=== PATIENT | female | born 1935 | race Caucasian/White ===

== ENCOUNTER 2017-12-06 06:23 | Emergency (ER) | payer MEDICARE, OTHER ==
[~2017-12-06] VITALS: Ht 157.5 cm; Wt 59.0 kg
[~2017-12-06 06:23] MED LIST: TENORMIN 25MG T25 MG; Z.0.ACCUPRIL20 MG; Z.0.AMBIEN10 MG; Z.0.AMLODIPINE BESYL; Z.0.CYMBALTA30 MG; Z.0.SOMA350 MG; Z.0.VICODIN 5-5001 E; Z.0.XANAX0.5 MG
[2017-12-06] MEDS ORDERED: BUPIVACAINE HCL 0.5% 10ML MPF VIAL INJ ONE ×2 (08:15)
== END 2017-12-06 09:20 | disposition home or self-care (01) ==
LOC: ER 06:23
DX: S60.451A Superficial foreign body of left index finger, initial encounter (principal); L03.012 Cellulitis of left finger; W18.39XD Other fall on same level, subsequent encounter; H10.022 Other mucopurulent conjunctivitis, left eye; I10 Essential (primary) hypertension; I25.10 Atherosclerotic heart disease of native coronary artery without angina pectoris; Z85.72 Personal history of non-Hodgkin lymphomas

== ENCOUNTER 2021-10-27 11:24 | Emergency (ER) | payer MEDICARE ==
[~2021-10-27] VITALS: Ht 157.5 cm; Wt 55.8 kg
[~2021-10-27 11:24] MED LIST changes: +ATENOLOL25 MG PO; +CYMBALTA30 MG PO; +NORCO 10-325 T1 EACH PO; +QUINAPRIL HCL20 MG PO; +SOMA250 MG; +XANAX0.25 MG PO; +ZOLPIDEM TARTRA10 MG PO
[2021-10-27] MEDS ORDERED: SODIUM CHLORIDE 0.9% 1000ML 1,000 ML IV STA (11:38)
[2021-10-27] MEDS ORDERED: HYDROCODONE/APAP 10MG-325MG TAB PO ONE (12:00)
[2021-10-27 12:12] LABS: BASOPHILS % 0.3 % (0.0-1.0); EOSINOPHILS # (AUTO) 0.1 (0.0-0.4); EOSINOPHILS % 1.1 % (0.0-6.0); HEMATOCRIT 40.8 % (34.2-44.1); HEMOGLOBIN 12.8 g/dL (12.0-16.0); LYMPHOCYTES # (AUTO) 2.7 (1.0-3.2); LYMPHOCYTES % 23.7 % (18.0-39.1); MEAN CORPUSCULAR HEMOGLOBIN 27.3 pg (28-32); MEAN CORPUSCULAR HGB CONC 31.4 g/dL (31-35); MONOCYTES # (AUTO) 1.2 (0.2-0.8); MONOCYTES % 10.2 % (4.4-11.3); NEUTROPHILS # (AUTO) 7.4 (2.1-6.9); NEUTROPHILS % 64.4 % (38.7-80.0); PLATELET COUNT 274 x10e3/uL (140-360); RED BLOOD COUNT 4.69 x10e6/uL (3.6-5.1)
[2021-10-27 12:23] LABS: INR 0.94; PARTIAL THROMBOPLASTIN TIME 27.8 seconds (23.8-35.5); PROTHROMBIN TIME 13.3 seconds (11.9-14.5)
[2021-10-27 12:26] LABS: CLARITY,URINE CLEAR (CLEAR); COLOR,URINE YELLOW (YELLOW); KETONES,URINE NEGATIVE (NEGATIVE); LEUKOCYTE ESTERASE ,URINE NEGATIVE (NEGATIVE); NITRITE,URINE NEGATIVE (NEGATIVE); PROTEIN,URINE DIPSTICK NEGATIVE (NEGATIVE); URINE UROBILINOGEN 0.2 mg/dL (0.2 - 1)
[2021-10-27 12:32] LABS: ALANINE AMINOTRANSFERASE 12 IU/L (0-55); ALBUMIN 4.2 g/dL (3.5-5.0); ALBUMIN/GLOBULIN RATIO 1.1 (0.8-2.0); ALKALINE PHOSPHATASE 76 IU/L (40-150); ANION GAP 16.4 mmol/L (8-16); BLOOD UREA NITROGEN 9 mg/dL (7-26); BUN/CREATININE RATIO 9 (6-25); CALCIUM 9.2 mg/dL (8.4-10.2); CARBON DIOXIDE 19 mmol/L (22-29); CHLORIDE 105 mmol/L (98-107); CREATINE KINASE 62 IU/L (29-168); CREATININE, SERUM 1.02 mg/dL (0.57-1.11); EST GLOMERULAR FILTRATION RATE 52 ML/MIN (60-); GLUCOSE 129 mg/dL (74-118); POTASSIUM 3.4 mmol/L (3.5-5.1); SODIUM 137 mmol/L (136-145)
[2021-10-27 12:33] LABS: BACTERIA,URINE RARE /HPF; RBC,URINE 0-5 /HPF (0-5); WBC,URINE (MAN) 0-5 /HPF (0-5)
[2021-10-27 12:34] LABS: EPITHELIAL CELLS,URINE RARE /LPF
[2021-10-27] MEDS ORDERED: CIPRO500 MG PO (18:43)
== END 2021-10-27 19:13 | disposition home or self-care (01) ==
LOC: MERGE 11:28 → ER 11:28
DX: R45.851 Suicidal ideations (principal); R46.89 Other symptoms and signs involving appearance and behavior; N39.0 Urinary tract infection, site not specified; R42 Dizziness and giddiness; I10 Essential (primary) hypertension; Z85.72 Personal history of non-Hodgkin lymphomas; R94.31 Abnormal electrocardiogram [ECG] [EKG]
CPT/HCPCS: 36415; 70450; 71045; 80053; 81001; 82550; 82553; 83880; 84484; 85025; 85610; 85730; 93005; 99285; J7030

== ENCOUNTER → 2022-04-01 | Outpatient (CLI) | payer MEDICARE ==
[~2022-04-01] MED LIST changes: +CIPRO500 MG PO
== END ==
LOC: CARD 13:49
PROVIDERS: ATTEND Family Medicine
DX: I73.9 Peripheral vascular disease, unspecified (principal)
CPT/HCPCS: 93925

== ENCOUNTER 2024-07-01 09:18 | Inpatient (IN) | payer MEDICARE ==
[~2024-07-01] VITALS: Ht 157.5 cm; Wt 52.2 kg
[2024-07-01 09:58] LABS: BASOPHILS % 0.1 % (0.0-1.0); HEMATOCRIT 36.3 % (34.2-44.1); HEMOGLOBIN 12.7 g/dL (12.0-16.0); LYMPHOCYTES # (AUTO) 1.3 (1.0-3.2); LYMPHOCYTES % 6.2 % (18.0-39.1); MEAN CORPUSCULAR HEMOGLOBIN 32.7 pg (28-32); MEAN CORPUSCULAR VOLUME 93.6 fL (81-99); MONOCYTES # (AUTO) 1.5 (0.2-0.8); MONOCYTES % 7.2 % (4.4-11.3); NEUTROPHILS # (AUTO) 17.6 (2.1-6.9); NEUTROPHILS % 85.9 % (38.7-80.0); PLATELET COUNT 293 x10e3/uL (140-360); RED BLOOD COUNT 3.88 x10e6/uL (3.6-5.1); RED CELL DISTRIBUTION WIDTH 13.3 % (11.7-14.4); WHITE BLOOD COUNT 20.47 x10e3/uL (4.8-10.8)
[2024-07-01 10:03] LABS: INR 0.94; PROTHROMBIN TIME 13.1 seconds (11.9-14.5)
[2024-07-01 10:04] LABS: PARTIAL THROMBOPLASTIN TIME 24.8 seconds (23.8-35.5)
[2024-07-01 10:14] LABS: ALANINE AMINOTRANSFERASE 7 IU/L (0-55); ALBUMIN/GLOBULIN RATIO 1.2 (0.8-2.0); ALKALINE PHOSPHATASE 69 IU/L (40-150); BILIRUBIN,TOTAL 1.3 mg/dL (0.2-1.2); CREATINE KINASE 118 IU/L (29-168); CREATININE, SERUM 0.81 mg/dL (0.57-1.11); EST GLOMERULAR FILTRATION RATE 71 ML/MIN (>=60); GLUCOSE 138 mg/dL (74-118); LIPASE 29 U/L (8-78); MAGNESIUM 1.6 MG/DL (1.3-2.1); TOTAL PROTEIN 7.3 g/dL (6.5-8.1)
[2024-07-01] MEDS: ONDANSETRON HCL INJ 2MG/ML 2ML 2 MG/ML VIAL IV STA (10:20)
[2024-07-01] MEDS: DICYCLOMINE HCL 20 MG/2 ML VIAL IM ONE (10:20)
[2024-07-01] MEDS: ALPRAZOLAM 0.5 MG TAB PO ONE (10:20)
[2024-07-01] MEDS: SODIUM CHLORIDE 0.9% 1000ML 1,000 ML IV STA (10:21)
[2024-07-01 10:38] LABS: TROPONIN I < 0.001 ng/mL (0-0.300)
[2024-07-01] MEDS ORDERED: IOPAMIDOL 370 MG/ML 100 ML INFUS..BTL INJ ONE (10:42)
[2024-07-01 10:46] LABS: BLOOD UREA NITROGEN 9 mg/dL (7-26); BUN/CREATININE RATIO 11 (6-25)
[2024-07-01 10:48] VITALS: PULSE 71; RESP 17; TEMP 98.3
[2024-07-01 11:12] LABS: LYMPHOCYTES % (MANUAL) 8 % (19-48); MONOCYTES % (MANUAL) 4 % (3.4-9.0); NEUTROPHILS % (MANUAL) 88 % (40-74); PLATELET ESTIMATE ADEQUATE; PLATELET MORPHOLOGY COMMENT NORMAL; RBC MORPHOLOGY COMMENT NORMAL
[2024-07-01 11:37] LABS: CLARITY,URINE CLEAR (CLEAR); COLOR,URINE YELLOW (YELLOW); GLUCOSE, URINE NEGATIVE (NEGATIVE); KETONES,URINE >=160 (NEGATIVE); LEUKOCYTE ESTERASE ,URINE NEGATIVE (NEGATIVE); NITRITE,URINE NEGATIVE (NEGATIVE); PH,URINE 5.5 (5 - 7); PROTEIN,URINE DIPSTICK 1+ (NEGATIVE); URINE UROBILINOGEN 0.2 mg/dL (0.2 - 1)
[2024-07-01 11:38] LABS: BILIRUBIN,URINE NEGATIVE (NEGATIVE)
[2024-07-01 11:42] LABS: ANION GAP 18.3 mmol/L (8-16); CARBON DIOXIDE 19 mmol/L (18-33); CHLORIDE 89 mmol/L (101-111); POTASSIUM 3.3 mmol/L (3.0-5.1); SODIUM 123 mmol/L (128-145)
[2024-07-01 11:46] LABS: BACTERIA,URINE FEW /HPF; EPITHELIAL CELLS,URINE FEW /LPF
[2024-07-01] MEDS ORDERED: ACETAMINOPHEN 325 MG TAB PO PRN (13:45)
[2024-07-01] MEDS ORDERED: ONDANSETRON HCL INJ 2MG/ML 2ML 2 MG/ML VIAL IV PRN (13:45)
[2024-07-01 14:50] VITALS: BP 144/70; PULSE 64; RESP 17; TEMP 98.4; O2SAT 97
[2024-07-01] MEDS ORDERED: AMLODIPINE BESYL5 MG PO (15:42)
[2024-07-01] MEDS ORDERED: MEMANTINE HCL5 MG PO (15:42)
[2024-07-01] MEDS ORDERED: ALPRAZOLAM0.5 MG PO (15:42)
[2024-07-01] MEDS ORDERED: HYDROCODON-ACE1 EAC9 PO (15:42)
[2024-07-01] MEDS ORDERED: RAMIPRIL2.5 MG PO (15:42)
[2024-07-01] MEDS ORDERED: PRAVASTATIN SOD20 MG PO (15:42)
[2024-07-01 15:44] VITALS: BP 119/60; O2SAT 98
[2024-07-01 15:55] VITALS: BP 119/60; O2SAT 98
[2024-07-01] MEDS: HYDROCODONE/APAP 10MG-325MG TAB PO PRN (16:10)
[2024-07-01] MEDS: SODIUM CHLORIDE 0.9% 1000ML 1,000 ML IV SCH (16:21)
[2024-07-01 16:28] LABS: TROPONIN I 0.01 ng/mL (0-0.300)
[2024-07-01 16:42] LABS: BLOOD UREA NITROGEN 8 mg/dL (7-26); GLUCOSE 114 mg/dL (74-118); OSMOLALITY,SERUM 256 mOsm/kg (278-305); SODIUM 128 mmol/L (136-145)
[2024-07-01] MEDS: ALPRAZOLAM 0.5 MG TAB PO SCH (19:01)
[2024-07-01 20:04] VITALS: BP 117/58; PULSE 66; RESP 18; TEMP 98.4; O2SAT 97
[2024-07-01 23:37] VITALS: BP 106/55; PULSE 55; RESP 18; TEMP 98.2; O2SAT 98
[2024-07-02] VITALS (7 sets, daily range): BP systolic 113–133; BP diastolic 53–66; PULSE 60–78; RESP 14–20; TEMP 98–98.3; O2SAT 94–100
[2024-07-02 06:30] LABS: BASOPHILS % 0.1 % (0.0-1.0); EOSINOPHILS # (AUTO) 0.1 (0.0-0.4); EOSINOPHILS % 0.8 % (0.0-6.0); HEMATOCRIT 30.6 % (34.2-44.1); HEMOGLOBIN 10.3 g/dL (12.0-16.0); LYMPHOCYTES # (AUTO) 2.8 (1.0-3.2); LYMPHOCYTES % 23.6 % (18.0-39.1); MEAN CORPUSCULAR HEMOGLOBIN 32.9 pg (28-32); MEAN CORPUSCULAR HGB CONC 33.7 g/dL (31-35); MEAN CORPUSCULAR VOLUME 97.8 fL (81-99); MONOCYTES # (AUTO) 1.3 (0.2-0.8); MONOCYTES % 11.1 % (4.4-11.3); NEUTROPHILS # (AUTO) 7.5 (2.1-6.9); NEUTROPHILS % 63.6 % (38.7-80.0); PLATELET COUNT 218 x10e3/uL (140-360); RED BLOOD COUNT 3.13 x10e6/uL (3.6-5.1); RED CELL DISTRIBUTION WIDTH 14.1 % (11.7-14.4); WHITE BLOOD COUNT 11.72 x10e3/uL (4.8-10.8)
[2024-07-02 06:31] LABS: TROPONIN I 0.013 ng/mL (0-0.300)
[2024-07-02 06:38] LABS: ALBUMIN 3.4 g/dL (3.5-5.0); ALBUMIN/GLOBULIN RATIO 1.1 (0.8-2.0); BILIRUBIN,TOTAL 0.4 mg/dL (0.2-1.2); CALCIUM 9.8 mg/dL (8.4-10.2); CREATININE, SERUM 0.81 mg/dL (0.57-1.11); TOTAL PROTEIN 6.5 g/dL (6.5-8.1)
[2024-07-02 07:37] LABS: POTASSIUM 3.9 mmol/L (3.5-5.1)
[2024-07-02 08:08] LABS: ANION GAP 5.9 mmol/L (8-16)
[2024-07-02] MEDS ORDERED: MEMANTINE HCL 5 MG PO SCH (09:00)
[2024-07-02] MEDS ORDERED: NON-FORMULARY MEDICATION (Atenolol 25 MG) PO SCH (09:00)
[2024-07-02] MEDS: DULOXETINE HCL 30 MG DELAYED RELEASE PO SCH (09:09)
[2024-07-02] MEDS: MEMANTINE 10 MG TAB PO SCH (09:10)
[2024-07-02] MEDS: ATENOLOL 50 MG TAB PO SCH (09:10)
[2024-07-02] MEDS: PRAVASTATIN 20 MG TAB PO SCH (09:10)
[2024-07-02] MEDS: AMLODIPINE BESYLATE 5 MG TAB PO SCH (09:10)
[2024-07-03] VITALS: BP 116/56; PULSE 65; RESP 18; TEMP 97.9; O2SAT 99
[2024-07-03 04:00] VITALS: BP 125/58; PULSE 75; RESP 18; TEMP 99; O2SAT 96
[2024-07-03 06:18] LABS: BASOPHILS % 0.2 % (0.0-1.0); EOSINOPHILS # (AUTO) 0.3 (0.0-0.4); EOSINOPHILS % 2.6 % (0.0-6.0); HEMOGLOBIN 9.4 g/dL (12.0-16.0); LYMPHOCYTES # (AUTO) 2.3 (1.0-3.2); LYMPHOCYTES % 23.2 % (18.0-39.1); MEAN CORPUSCULAR HEMOGLOBIN 32.3 pg (28-32); MEAN CORPUSCULAR HGB CONC 32.4 g/dL (31-35); MEAN CORPUSCULAR VOLUME 99.7 fL (81-99); MONOCYTES % 9.7 % (4.4-11.3); NEUTROPHILS # (AUTO) 6.4 (2.1-6.9); NEUTROPHILS % 63.8 % (38.7-80.0); PLATELET COUNT 205 x10e3/uL (140-360); RED BLOOD COUNT 2.91 x10e6/uL (3.6-5.1); WHITE BLOOD COUNT 9.98 x10e3/uL (4.8-10.8)
[2024-07-03 06:44] LABS: ALBUMIN 2.9 g/dL (3.5-5.0); ALBUMIN/GLOBULIN RATIO 1.2 (0.8-2.0); ALKALINE PHOSPHATASE 55 IU/L (40-150); ANION GAP 9.1 mmol/L (8-16); BILIRUBIN,TOTAL 0.2 mg/dL (0.2-1.2); BLOOD UREA NITROGEN 8 mg/dL (7-26); BUN/CREATININE RATIO 10 (6-25); CALCIUM 7.8 mg/dL (8.4-10.2); CARBON DIOXIDE 21 mmol/L (22-29); CHLORIDE 109 mmol/L (98-107); CREATININE, SERUM 0.77 mg/dL (0.57-1.11); EST GLOMERULAR FILTRATION RATE 75 ML/MIN (>=60); GLUCOSE 91 mg/dL (74-118); SODIUM 136 mmol/L (136-145); TOTAL PROTEIN 5.4 g/dL (6.5-8.1)
[2024-07-03 06:53] LABS: ALANINE AMINOTRANSFERASE < 6 IU/L (0-55); POTASSIUM 3.1 mmol/L (3.5-5.1)
[2024-07-03 08:25] VITALS: BP 130/60; PULSE 83; RESP 16; TEMP 97.7; O2SAT 100
[2024-07-03 08:26] VITALS: BP 130/60; PULSE 83; RESP 16; TEMP 97.7; O2SAT 100
[2024-07-03 20:00] VITALS: BP 124/67; PULSE 82; RESP 18; TEMP 97.9; O2SAT 97
[2024-07-03 20:34] LABS: OSMOLALITY,SERUM OSMOMETER 251 mOsmol/kg (280-301)
[2024-07-03 21:00] VITALS: BP 124/67; PULSE 82; RESP 18; TEMP 97.9; O2SAT 97
[2024-07-03 23:40] LABS: OSMOLALITY,URINE 577 mOsmol/kg (.)
[2024-07-04] VITALS (8 sets, daily range): BP systolic 123–145; BP diastolic 61–72; PULSE 71–82; RESP 17–20; TEMP 97.5–98.4; O2SAT 91–100
[2024-07-05] VITALS (7 sets, daily range): BP systolic 120–144; BP diastolic 61–72; PULSE 76–82; RESP 18–19; TEMP 97.8–98; O2SAT 91–100
[2024-07-05 07:13] LABS: BASOPHILS % 0.3 % (0.0-1.0); EOSINOPHILS # (AUTO) 0.5 (0.0-0.4); EOSINOPHILS % 6.9 % (0.0-6.0); HEMATOCRIT 28.7 % (34.2-44.1); HEMOGLOBIN 9.6 g/dL (12.0-16.0); LYMPHOCYTES % 25.5 % (18.0-39.1); MEAN CORPUSCULAR HEMOGLOBIN 32.7 pg (28-32); MEAN CORPUSCULAR HGB CONC 33.4 g/dL (31-35); MEAN CORPUSCULAR VOLUME 97.6 fL (81-99); MONOCYTES # (AUTO) 0.7 (0.2-0.8); MONOCYTES % 9.4 % (4.4-11.3); NEUTROPHILS # (AUTO) 4.5 (2.1-6.9); NEUTROPHILS % 57.6 % (38.7-80.0); PLATELET COUNT 221 x10e3/uL (140-360); RED BLOOD COUNT 2.94 x10e6/uL (3.6-5.1); RED CELL DISTRIBUTION WIDTH 14.2 % (11.7-14.4); WHITE BLOOD COUNT 7.73 x10e3/uL (4.8-10.8)
[2024-07-05 07:41] LABS: ANION GAP 10.2 mmol/L (8-16); CALCIUM 7.8 mg/dL (8.4-10.2); CREATININE, SERUM 0.71 mg/dL (0.57-1.11); POTASSIUM 3.2 mmol/L (3.5-5.1)
[2024-07-06] VITALS: BP 135/60; PULSE 77; RESP 18; TEMP 97.4; O2SAT 100
[2024-07-06 04:00] VITALS: BP 134/72; PULSE 86; RESP 18; TEMP 96.7; O2SAT 98
[2024-07-06 08:21] VITALS: BP 138/65; PULSE 91; RESP 20; TEMP 98.2; O2SAT 98
[2024-07-06 08:36] VITALS: BP 138/65; PULSE 91
== END 2024-07-06 08:43 | disposition home or self-care (01) | DRG 690 ==
LOC: ER 09:31 → ERHOLD 13:38 → MERGE 13:38 → MED/SURG3 14:40
PROVIDERS: ADMIT Family Medicine; ATTEND Family Medicine
DX: N39.0 Urinary tract infection, site not specified (principal); E87.1 Hypo-osmolality and hyponatremia; F11.23 Opioid dependence with withdrawal; F03.94 Unspecified dementia, unspecified severity, with anxiety; T40.2X5A Adverse effect of other opioids, initial encounter; E86.0 Dehydration; K52.9 Noninfective gastroenteritis and colitis, unspecified; D64.9 Anemia, unspecified; I10 Essential (primary) hypertension; E78.5 Hyperlipidemia, unspecified; G89.29 Other chronic pain; M54.50 Low back pain, unspecified; Y92.009 Unspecified place in unspecified non-institutional (private) residence as the place of occurrence of the external cause
CPT/HCPCS: 36415; 70450; 71045; 74177; 80048; 80053; 81001; 82550; 82947; 83690; 83735; 83930; 83935; 84295; 84300; 84484; 84520; 85025; 85610; 85730; 87086; 93005; 99252; J0696; J2405; J2470; J7030; Q9967